=== PATIENT | female | born 1965 | race Caucasian/White ===

== ENCOUNTER 2023-11-11 14:07 | Emergency (ER) | payer OTHER, SELFPAY ==
[2023-11-11] MEDS ORDERED: predniSONE 20 MG TAB ONE (14:36)
== END 2023-11-11 14:43 | disposition home or self-care (01) ==
LOC: NAV ERS 14:07
DX: L23.7 Allergic contact dermatitis due to plants, except food (principal); F17.210 Nicotine dependence, cigarettes, uncomplicated
CPT/HCPCS: 99282; J7512